=== PATIENT | female | born 1980 | race Caucasian/White ===

== ENCOUNTER 2018-10-15 11:30 | Inpatient (IN) | payer BC ==
[~2018-10-15] VITALS: Ht 167.6 cm; Wt 109.0 kg
[2018-10-15 11:30] VITALS: BP_SYST 147
[2018-10-15] MEDS ORDERED: MORPHINE 4 MG/ML INJ. SYRINGE IVP ONE (12:15)
[2018-10-15] MEDS ORDERED: ONDANSETRON HCL 4 MG/2 ML VIAL IVP ONE (12:15)
[2018-10-15] MEDS: NACL 0.9% 1,000 ML IV ONE ×2 (12:45→12:51)
[2018-10-15 12:57] LABS: BILIRUBIN,URINE NEGATIVE (NEGATIVE); BLOOD, URINE 3+ (NEGATIVE); COLOR,URINE YELLOW (YELLOW); GLUCOSE,URINE NEGATIVE (NEGATIVE); KETONES,URINE 1+ (NEGATIVE); LEUKOCYTE ESTERASE ,URINE NEGATIVE (NEGATIVE); NITRITE, URINE NEGATIVE (NEGATIVE); PH,URINE 5.5 (5.0-8.0); PROTEIN URINE TRACE (NEGATIVE); UROBILINOGEN,URINE 0.2 (0.2-1.0)
[2018-10-15 13:03] LABS: CLARITY/URINE HAZY (CLEAR)
[2018-10-15 13:05] LABS: CALCIUM 8.7 mg/dL (8.4-11.0); CREATININE 1.01 mg/dL (0.55-1.30); POTASSIUM 3.9 mmol/L (3.5-5.1)
[2018-10-15 13:07] LABS: BASOPHILS % (AUTO) 0.6 % (0.0-2.0); EOSINOPHILS # (AUTO) 0.1 K/uL (0.0-0.4); EOSINOPHILS % (AUTO) 1.3 % (0.0-4.0); HEMATOCRIT 39.9 % (36-48); HEMOGLOBIN 13.2 g/dL (12.0-16.0); INR 0.9 (0.8-1.2); LYMPHOCYTES # (AUTO) 1.4 K/uL (1.0-5.5); LYMPHOCYTES % (AUTO) 19.5 % (20.5-51.5); MEAN CORPUSCULAR HEMOGLOBIN 29 pg (27-31); MEAN CORPUSCULAR HGB CONC 33 % (32-36); MEAN CORPUSCULAR VOLUME 88 fL (79.0-98.0); MONOCYTES # (AUTO) 0.3 K/uL (0.0-1.0); MONOCYTES % (AUTO) 4.8 % (1.7-9.3); NEUTROPHILS # (AUTO) 5.2 K/uL (1.8-7.7); NEUTROPHILS % (AUTO) 73.8 % (40.0-70.0); PLATELET COUNT (AUTO) 257 K/uL (130-430); PROTHROMBIN TIME 9.7 SECS (9.5-12.5); RED BLOOD CELL COUNT(AUTO) 4.55 MIL/uL (4.2-6.2); WHITE BLOOD COUNT (AUTO) 7.1 K/uL (4.8-10.8)
[2018-10-15 13:10] LABS: TOTAL BILIRUBIN 0.5 mg/dL (0.0-1.0)
[2018-10-15 13:23] LABS: BACTERIA,URINE MANY /HPF (None Seen); MUCUS,URINE 1+ /LPF (None Seen)
[2018-10-15] MEDS ORDERED: PARO-63 PO (14:08)
[2018-10-15] MEDS ORDERED: METO-442 PO (14:08)
[2018-10-15] MEDS ORDERED: MORPHINE 2 MG/ML INJ. SYRINGE IVP ONE (14:30)
[2018-10-15 14:50] LABS: CREATINE KINASE MB 4.9 ng/mL (0-3.6)
[2018-10-15] MEDS ORDERED: ONDANSETRON HCL 4 MG/2 ML VIAL IVP PRN (18:00)
[2018-10-15] MEDS ORDERED: TEMAZEPAM 15 MG CAPSULE PO PRN (18:00)
[2018-10-15 18:30] VITALS: BP_SYST 146
[2018-10-15] MEDS: D5/0.45 NS 1,000 ML IV SCH (18:38)
[2018-10-15] MEDS: HYDROmorphone 1 MG INJ. 1 MG/ML AMPUL IVP PRN ×2 (18:39→22:39)
[2018-10-15 19:16] VITALS: BP_SYST 140
[2018-10-15 20:00] VITALS: BP_SYST 139
[2018-10-15] MEDS ORDERED: ZOLPIDEM TARTRATE 5 MG TABLET PO PRN (20:45)
[2018-10-15] MEDS ORDERED: METOPROLOL TARTRATE 50 MG TABLET PO SCH (21:00)
[2018-10-15 23:45] VITALS: BP_SYST 144
[2018-10-16] MEDS ORDERED: DIPHENHYDRAMINE INJ 50 MG/ML VIAL IM PRN (02:00)
[2018-10-16] MEDS: D5/0.45 NS 1,000 ML IV SCH (02:03)
[2018-10-16] MEDS: HYDROmorphone 1 MG INJ. 1 MG/ML AMPUL IVP PRN (04:22)
[2018-10-16 07:30] VITALS: BP_SYST 140
[2018-10-16] MEDS ORDERED: KETOROLAC TROMETHAMINE 30 MG VIAL IVP PRN (08:45)
[2018-10-16] MEDS ORDERED: fentaNYL CITRATE/PF 100 MCG/2 ML AMP IVP PRN (08:45)
[2018-10-16] MEDS ORDERED: ONDANSETRON HCL 4 MG/2 ML VIAL IVP PRN ×2 (08:45→09:30)
[2018-10-16] MEDS ORDERED: PARoxetine HCL 20 MG TABLET PO SCH (09:00)
[2018-10-16] MEDS ORDERED: HYDROcodone/ACETAMIN 5-325 MG TAB (NORCO/ VICODIN) PO PRN (09:30)
[2018-10-16] MEDS ORDERED: OXYCODONE/ACETAMINOPHEN 5-325 TABLET PO PRN ×2 (09:30)
[2018-10-16 09:34] VITALS: BP_SYST 144
[2018-10-16] MEDS ORDERED: NS 1000 ML IV.SOLN IV ONE (09:35)
[2018-10-16] MEDS ORDERED: fentaNYL CITRATE/PF 100 MCG/2 ML AMP ONE ×2 (09:35→10:29)
[2018-10-16] MEDS ORDERED: CEFAZOLIN 2 GM IVPB PREMIX 50 ML IV ONE (09:35)
[2018-10-16] MEDS ORDERED: KETOROLAC TROMETHAMINE 30 MG VIAL ONE ×2 (09:35→10:18)
[2018-10-16] MEDS ORDERED: LR 1,000 ML IV.SOLN IV ONE (09:35)
[2018-10-16] MEDS ORDERED: LABETALOL 100 MG/ 20ML VIAL ONE (09:35)
[2018-10-16] MEDS ORDERED: ROPIVACAINE HCL/PF 0.2% EPIDURAL 200 ML PLAST..BAG ONE (09:35)
[2018-10-16] MEDS ORDERED: SEVOFLURANE 15 MIN GAS INH ONE (09:35)
[2018-10-16] MEDS ORDERED: MIDAZOLAM HCL 5 MG/ML VIAL (VERSED) IV ONE (09:35)
[2018-10-16] MEDS ORDERED: ONDANSETRON HCL 4 MG/2 ML VIAL ONE (09:35)
[2018-10-16] MEDS ORDERED: PROPOFOL 200MG/ 20ML VIAL (DIPRIVAN) IV ONE (09:35)
[2018-10-16] MEDS ORDERED: ROCURONIUM BROMIDE 10 MG/ML (ZEMURON) ONE (09:35)
[2018-10-16] MEDS ORDERED: WATER FOR IRRIGATION,STERILE 1,000 ML IRRIG.SOLN IR ONE (09:35)
[2018-10-16] MEDS: fentaNYL CITRATE/PF 100 MCG/2 ML AMP IVP PRN ×2 (10:22→10:34)
[2018-10-16] MEDS ORDERED: KETOROLAC TROMETHAMINE 30 MG VIAL IVP ONE (12:00)
[2018-10-16 12:20] VITALS: BP_SYST 145
[2018-10-16 12:36] VITALS: BP_SYST 145
[2018-10-16] MEDS ORDERED: OXYC-580 PO (12:44)
[2018-10-16] MEDS ORDERED: IBUP-1969 PO (12:45)
[2018-10-16] MEDS ORDERED: SIMETHICONE 80 MG TAB.CHEW PO SCH (13:00)
== END 2018-10-16 13:15 | disposition home or self-care (01) | DRG 743 ==
LOC: SED 11:30 → SMU 17:48
PROVIDERS: ADMIT Specialist; ATTEND Specialist
PROC: 0UT7FZZ Resection of Bilateral Fallopian Tubes, Via Natural or Artificial Opening With Percutaneous Endoscopic Assistance (ICD-10-PCS; 2018-10-16)
PROC: 8E0W4CZ Robotic Assisted Procedure of Trunk Region, Percutaneous Endoscopic Approach (ICD-10-PCS; 2018-10-16)
PROC: 0UT9FZL Resection of Uterus, Supracervical, Via Natural or Artificial Opening With Percutaneous Endoscopic Assistance (ICD-10-PCS; principal; 2018-10-16 07:40)
DX: N93.8 Other specified abnormal uterine and vaginal bleeding (principal); N80.0 Endometriosis of uterus; N83.202 Unspecified ovarian cyst, left side; N88.8 Other specified noninflammatory disorders of cervix uteri; I10 Essential (primary) hypertension; Z90.710 Acquired absence of both cervix and uterus; Z98.1 Arthrodesis status; Z88.8 Allergy status to other drugs, medicaments and biological substances
CPT/HCPCS: 36415; 71045; 76830-TC; 76857; 80053; 81000-TC; 81025; 82550-TC; 82553-TC; 83880; 84484; 84703; 85025; 85610-TC; 85730-TC; 86886; 86900; 86901; 87081; 87086; 88307; 93005; 96361; 96374; 96375; 96376; 99285; J0690; J1170; J1200; J1885; J2250; J2270; J2405; J2704; J3010; J3490; J7030; J7120